=== PATIENT | female | born 1975 | race Caucasian/White ===

== ENCOUNTER 2021-05-30 20:49 | Emergency (ER) | payer OTHER ==
[2021-05-30 21:30] LABS: BASOPHIL 0.4 % (0-2); EOSINOPHIL 0.6 % (0-5); HGB 12.7 g/dl (12.5-16.0); LYMPHOCYTE 10.4 % (15-48); MCH 32.6 pg (25.0-31.0); MCHC 33.4 g/dL (32.0-36.0); MCV 97.7 fL (78.0-100.0); MONOCYTE 7.1 % (0-12); MPV 9.9 fL (6.0-9.5); NEUTROPHIL 81.2 % (41-80); NRBC 0; PLT 333 K/uL (150-400); RBC 3.89 M/uL (4.20-5.40); RDW 14.3 % (11.5-14.0); WBC 14.3 K/uL (4.0-10.5)
[2021-05-30 21:40] LABS: ALBUMIN 4.2 g/dL (3.4-5.0); BILIRUBIN - TOTAL 0.7 mg/dL (0.2-1.0); BUN/CREAT RATIO (CALC) 16.8 RATIO; CREATININE 1.01 mg/dL (0.51-0.95); GLOBULIN (CALCULATION) 3.5 g/dL; POTASSIUM 3.8 mmol/L (3.5-5.1); TOTAL PROTEIN 7.7 g/dL (6.4-8.2)
[2021-05-30 22:02] LABS: BILIRUBIN NEGATIVE (NEGATIVE); BLOOD 2+ Ery/uL (NEGATIVE); CLARITY CLEAR (CLEAR); COLOR YELLOW (YELLOW); GLUCOSE (U) NORMAL (NORMAL); LEUKOCYTES 3+ Leu/uL (NEGATIVE); NITRITE NEGATIVE (NEGATIVE); PROTEIN 1+ mg/dL (NEGATIVE); UROBILINOGEN 0.2 mg/dL (0.2-1.0)
[2021-05-30 22:13] LABS: LACTIC ACID 1.3 mmol/L (0.4-1.9)
[2021-05-30 22:16] LABS: SQUAMOUS EPITHELIAL CELLS RARE; URINARY WBC TNTC
[2021-05-30 22:33] LABS: CORONAVIRUS 2019 SARS-COV-2 NEGATIVE (NEGATIVE); INFLUENZA A NAA NEGATIVE (NEGATIVE)
[2021-05-31] MEDS ORDERED: ONDANSETRON ODT4 MG PO (07:26)
[2021-05-31] MEDS ORDERED: PERCOCET 10-321 EACH PO (07:26)
[2021-05-31] MEDS ORDERED: NAPROXEN500 MG PO (07:26)
[2021-05-31] MEDS ORDERED: BACTRIM DS TAB1 EACH PO (07:31)
[2021-05-31 11:00] LABS: CHOLESTEROL 180 mg/dL (<200); HDL 64 mg/dL (40-60); LDL - DIRECT 104 mg/dL (<100); TRIGLYCERIDES 75 mg/dL (<150)
== END 2021-05-31 08:45 | disposition home or self-care (01) ==
LOC: FER 20:49
PROVIDERS: Emergency Medicine; Nurse Practitioner Family
DX: N13.2 Hydronephrosis with renal and ureteral calculous obstruction (principal); F17.210 Nicotine dependence, cigarettes, uncomplicated; Z20.822 Contact with and (suspected) exposure to COVID-19; Z88.1 Allergy status to other antibiotic agents
CPT/HCPCS: 36415; 80053; 80061; 81001; 82150; 83605; 83690; 85025; 85379; 87040; 87076; 87077; 87088; 87186; J1170; J2270; J2405; J7030; Q9967; U0002